=== PATIENT | female | born 1975 | race Two or more races ===

== ENCOUNTER 2023-12-24 19:37 | Emergency (ER) | payer OTHER ==
[2023-12-24 20:00] VITALS: BP 111/67; PULSE 68; RESP 20; TEMP 98.1; BMI 20.7
== END 2023-12-24 20:35 | disposition home or self-care (01) ==
LOC: JER 19:37
DX: R06.9 Unspecified abnormalities of breathing (principal); L50.9 Urticaria, unspecified; T63.441A Toxic effect of venom of bees, accidental (unintentional), initial encounter
CPT/HCPCS: 99283-25